=== PATIENT | female | born 1965 | race Caucasian/White ===

== ENCOUNTER 2020-02-22 16:23 | Emergency (ER) | payer OTHER ==
[2020-02-22] MEDS ORDERED: Sodium Chloride 0.9% 10 ML Syringe FLUSH PRN (17:27)
--- NOTE | 2020-02-22 17:47 | EDM.PDOC ---
ED HPI GENERAL MEDICAL PROBLEM - General Chief Complaint: Skin Complaint Stated Complaint: STAPH INFECTION Time Seen by Provider: 02/22/20 16:44 Source of Information: Reports: Patient History Limitations: Reports: No Limitations - History of Present Illness INITIAL COMMENTS - FREE TEXT/NARRATIVE: The patient presents with lesions on her arms and legs. She says she has been dealing with this for about 4 months. This started back in October. She saw her doctor and they did cultures and it showed staph aureus. She was on clindamycin, bactrim and then keflex. She also saw a hairspring truer. They tried steroid cream and oral steroids. Nothing is helping. The lesion itch and they drain at times. She has no fever or chills. She has no abdominal pain, nausea, vomiting, chest pain or shortness of breath. 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: Psychiatric History: Reports: Anxiety, Depression Endocrine/Metabolic History: Reports: Diabetes, Type I, Hypothyroidism - Past Surgical History Female Surgical History: Reports: Section Social & Family History - Family History Family Medical History: Noncontributory - Tobacco Use Smoking Status *Q: Never Smoker - Caffeine Use Caffeine Use: Reports: None ED ROS GENERAL - Review of Systems Review Of Systems: See Below Constitutional: Reports: No Symptoms HEENT: Reports: No Symptoms Respiratory: Reports: No Symptoms Cardiovascular: Reports: No Symptoms Endocrine: Reports: No Symptoms GI/Abdominal: Reports: No Symptoms : Reports: No Symptoms Musculoskeletal: Reports: No Symptoms Skin: Reports: Other (lesions on her arms and legs) ED EXAM, SKIN/RASH Exam: See Below Exam Limited By: No Limitations General Appearance: Alert, No Apparent Distress Ears: Normal External Exam Nose: Normal Inspection Head: Atraumatic, Normocephalic Neck: Normal Inspection Respiratory/Chest: No Respiratory Distress Extremities: Other (multiple erythematous lesions with no drainage to her bilateral knees and bilateral arms) Course - Vital Signs Last Recorded V/S: Last Vital Signs Temp 97.7 F 02/22/20 16:46 Pulse 102 H 02/22/20 16:46 Resp 18 02/22/20 16:46 BP 172/83 H 02/22/20 16:46 Pulse Ox 96 02/22/20 16:46 - Orders/Labs/Meds Orders: Active Orders 24 hr Category Date Time Status Peripheral IV Care [RC] . DIRECTED Care 02/22/20 17:27 Active Sodium Chloride 0.9% [Saline Flush] Med 02/22/20 17:27 Active 10 ml FLUSH ASDIRECTED PRN Vancomycin [Vancocin] 1.25 gm Med 02/22/20 17:27 Active Sodium Chloride 0.9% [Normal Saline (AdvBag)] 250 ml IV ONETIME Peripheral IV Insertion Adult [OM.PC] Routine Oth 02/22/20 17:27 Ordered Medication Orders Vancomycin HCl 1.25 gm/ Sodium (Chloride) 250 mls @ 250 mls/hr IV ONETIME ONE Stop: 02/22/20 18:26 Sodium Chloride (Saline Flush) 10 ml FLUSH ASDIRECTED PRN PRN Reason: Keep Vein Open Meds: Medications Generic Name Dose Route Start Last Admin Trade Name Freq PRN Reason Stop Dose Admin Vancomycin HCl 1.25 gm/ Sodium 250 mls @ 250 mls/hr 02/22/20 17:27 Chloride IV 02/22/20 18:26 ONETIME ONE Sodium Chloride 10 ml 02/22/20 17:27 Saline Flush FLUSH ASDIRECTED PRN Keep Vein Open - Re-Assessments/Exams Free Text/Narrative Re-Assessment/Exam: 02/22/20 17:45 My first impression is that she is reacting to something. She did not feel that was the case and she wanted some IV antibiotics. I have agreed to that plan. 02/22/20 17:46 I have ordered an IV and vancomycin. I will order outpatient vancomycin for 10 days. Departure - Departure Time of Disposition: 17:50 Disposition: Home, Self-Care 01 Condition: Good Clinical Impression: Skin infection - Discharge Information *PRESCRIPTION DRUG MONITORING PROGRAM REVIEWED*: Not Applicable *COPY OF PRESCRIPTION DRUG MONITORING REPORT IN PATIENT DIOGENES: Not Applicable Referrals: PCP,None [Primary Care Provider] - Myrna Ramirez, BRIDGETTE [Nurse Practitioner] - 1 Week Additional Instructions: I have ordered outpatient vancomycin 2 times per day. We will give the first dose tonight and come back in the morning for the second dose. Follow up with James in our clinic. Sepsis Event Note (ED) - Evaluation Sepsis Screening Result: No Definite Risk - Focused Exam Vital Signs: Vital Signs Temp Pulse Resp BP Pulse Ox 02/22/20 16:46 97.7 F 102 H 18 172/83 H 96 - My Orders Last 24 Hours: My Active Orders 02/22/20 17:27 Peripheral IV Care [RC] . DIRECTED Sodium Chloride 0.9% [Saline Flush] 10 ml FLUSH ASDIRECTED PRN Vancomycin [Vancocin] 1.25 gm Sodium Chloride 0.9% [Normal Saline (AdvBag)] 250 ml IV ONETIME Peripheral IV Insertion Adult [OM.PC] Routine - Assessment/Plan Last 24 Hours: My Active Orders 02/22/20 17:27 Peripheral IV Care [RC] . DIRECTED Sodium Chloride 0.9% [Saline Flush] 10 ml FLUSH ASDIRECTED PRN Vancomycin [Vancocin] 1.25 gm Sodium Chloride 0.9% [Normal Saline (AdvBag)] 250 ml IV ONETIME Peripheral IV Insertion Adult [OM.PC] Routine
== END 2020-02-22 19:00 | disposition home or self-care (01) ==
LOC: JD.ED 16:23
DX: L08.9 Local infection of the skin and subcutaneous tissue, unspecified (principal); E10.9 Type 1 diabetes mellitus without complications; Z98.890 Other specified postprocedural states
CPT/HCPCS: 96365; 99282; J3370; J7050

== ENCOUNTER 2020-08-27 09:13 | Emergency (ER) | payer OTHER ==
--- NOTE | 2020-08-27 09:43 | EDM.PDOC ---
ED HPI GENERAL MEDICAL PROBLEM - General Chief Complaint: Syncope Stated Complaint: DIZZY Time Seen by Provider: 08/27/20 09:42 - History of Present Illness INITIAL COMMENTS - FREE TEXT/NARRATIVE: 55-year-old female presents the emergency room after developing sudden onset dizziness. Along with this dizziness she was having difficulty thinking. This started around 8:05 o'clock this morning. The patient got frustrated because she could not properly use her seatbelt in her car because it was folded up in one of the mechanisms not allowing it to come out. This may have triggered her to become upset. Patient had some dizziness she could not attribute this to turning her head to one side or the other. She went to work and had difficulty concentrating on the simplest of tasks that she does on a routine basis. Patient has a history of type 1 diabetes she checked her blood sugar and her blood sugar was fine. The patient had an episode of dizziness several years ago and it was attributed to being dehydrated. However, this is acting much different. With the prior episode she was not having thought problems and it was not a sudden onset. - Related Data Allergies Allergy/AdvReac Type Severity Reaction Status Date / Time No Known Allergies Allergy Verified 08/27/20 09:22 Home Meds: Home Meds Diltiazem [Cardizem] 0 mg PO DAILY 08/27/20 [History] Insulin Glarg,Human.Rec.Analog [Lantus] 50 unit SQ BEDTIME 08/27/20 [History] Insulin Lispro [HumaLOG] 0 unit SQ ASDIRECTED 08/27/20 [History] Losartan [Cozaar] 0 mg PO DAILY 08/27/20 [History] Sertraline [Zoloft] 100 mg PO DAILY 08/27/20 [History] atorvaSTATin [Lipitor] 0 mg PO BEDTIME 08/27/20 [History] Past Medical History HEENT History: Reports: Impaired Vision Other HEENT History: reading eyeglasses Cardiovascular History: Reports: High Cholesterol, Hypertension, Pulmonary Hypertension Other Cardiovascular History: states has hole in heart Genitourinary History: Reports: UTI, 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 Hematologic History: Reports: Iron Deficiency Dermatologic History: Reports: Eczema - Infectious Disease History Infectious Disease History: Reports: Chicken Pox - Past Surgical History Female Surgical History: Reports: Section Musculoskeletal Surgical History: Reports: Other (See Below) Other Musculoskeletal Surgeries/Procedures:: toe surgery Social & Family History - Family History Family Medical History: No Pertinent Family History - Tobacco Use Tobacco Use Status *Q: Never Tobacco User Second Hand Smoke Exposure: No - Caffeine Use Caffeine Use: Reports: Coffee, Energy Drinks, Soda, Tea - Alcohol Use Days Per Week of Alcohol Use: 3 Number of Drinks Per Day: 2 Total Drinks Per Week: 6 - Recreational Drug Use Recreational Drug Use: No ED ROS GENERAL - Review of Systems Review Of Systems: See Below Constitutional: Reports: No Symptoms HEENT: Reports: Other (Dizziness) Respiratory: Reports: No Symptoms Cardiovascular: Reports: Blood Pressure Problem. Denies: Chest Pain, Dyspnea on Exertion, Edema GI/Abdominal: Reports: No Symptoms, Other (She has not noticed any change in her appetite she is eating and drinking normally) : Reports: No Symptoms Musculoskeletal: Reports: No Symptoms Skin: Reports: No Symptoms Neurological: Reports: Confusion, Dizziness. Denies: Tremors, Trouble Speaking, Difficulty Walking, Weakness Psychiatric: Reports: No Symptoms Hematologic/Lymphatic: Reports: No Symptoms - Physical Exam Exam: See Below Exam Limited By: No Limitations General Appearance: Alert, No Apparent Distress Eye Exam: Bilateral Eye: Normal Inspection, PERRL Ears: Normal External Exam, Normal Canal, Hearing Grossly Normal, Normal TMs Nose: Normal Inspection, Normal Mucosa, No Blood Throat/Mouth: Normal Inspection, Normal Lips, Normal Teeth, Normal Gums, Normal Oropharynx, Normal Voice, No Airway Compromise Head Exam: Atraumatic, Normocephalic Neck: Normal Inspection, Supple, Non-Tender, Full Range of Motion. No: Lymphadenopathy (L), Lymphadenopathy (R) Respiratory/Chest: No Respiratory Distress, Lungs Clear, Normal Breath Sounds Cardiovascular: Regular Rate, Rhythm, No Edema, No Murmur GI/Abdominal: Normal Bowel Sounds, Soft, Non-Tender Neuro Exam (Abbreviated): Alert, Normal Cognition, Other (Cranial nerves II through XII grossly intact all muscle groups the upper and lower extremities are equal and appropriate bilaterally. Gentle per Provocative maneuvers here in the emergency department do not seem to elicit or make her dizziness worse.) Extremities: Normal Inspection, No Pedal Edema Psychiatric: Normal Affect, Normal Mood Skin Exam: Warm, Dry, Intact #1 Interpretation EKG Date: 08/27/20 Rhythm: NSR [place]: Normal P-Wave: Present QRS: Other (Q waves noted in lead III borderline aVF) ST-T: Normal QT: Normal Comparison: NA - No Prior EKG Course - Vital Signs Last Recorded V/S: Last Vital Signs Temp 36.3 C 08/27/20 13:40 Pulse 80 08/27/20 13:40 Resp 16 08/27/20 13:40 BP 167/76 H 08/27/20 13:40 Pulse Ox 97 08/27/20 13:40 - Orders/Labs/Meds Labs: Laboratory Tests 08/27/20 08/27/20 08/27/20 Range/Units 09:20 10:55 10:55 WBC (3.98-10.04) K/mm3 RBC (3.98-5.22) M/mm3 Hgb (11.2-15.7) gm/dl Hct (34.1-44.9) % MCV (79.4-94.8) fl MCH (25.6-32.2) pg MCHC (32.2-35.5) g/dl RDW Std Deviation (36.4-46.3) fL Plt Count (182-369) K/mm3 MPV (9.4-12.3) fl Neut % (Auto) (34.0-71.1) % Lymph % (Auto) (19.3-51.7) % [place] % (Auto) (4.7-12.5) % Eos % (Auto) (0.7-5.8) Baso % (Auto) (0.1-1.2) % Neut # (Auto) (1.56-6.13) K/mm3 Lymph # (Auto) (1.18-3.74) K/mm3 Kent # (Auto) (0.24-0.36) K/mm3 Eos # (Auto) (0.04-0.36) K/mm3 Baso # (Auto) (0.01-0.08) K/mm3 PT 9.8 (9.7-12.0) SECONDS INR < 0.93 APTT 26.8 (21.7-31.4) SECONDS Sodium 144 (136-145) mEq/L Potassium 4.2 (3.5-5.1) mEq/L Chloride 105 (98-107) mEq/L Carbon Dioxide 27 (21-32) mEq/L Anion Gap 16.2 H (5-15) BUN 11 (7-18) mg/dL Creatinine 0.6 (0.55-1.02) mg/dL Est Cr Clr Drug Dosing 108.13 mL/min Estimated GFR (MDRD) > 60 (>60) mL/min BUN/Creatinine Ratio 18.3 H (14-18) Glucose 123 H (74-106) mg/dL POC Glucose 119 H (70-105) mg/dL Calcium 9.5 (8.5-10.1) mg/dL Magnesium 2.0 (1.8-2.4) mg/dl Total Bilirubin 0.4 (0.2-1.0) mg/dL AST 28 (15-37) U/L ALT 33 (14-59) U/L Alkaline Phosphatase 127 H (46-116) U/L Troponin I < 0.017 (0.00-0.056) ng/mL Total Protein 7.9 (6.4-8.2) g/dl Albumin 3.5 (3.4-5.0) g/dl Globulin 4.4 gm/dL Albumin/Globulin Ratio 0.8 L (1-2) 08/27/20 Range/Units 10:55 WBC 6.75 (3.98-10.04) K/mm3 RBC 4.84 (3.98-5.22) M/mm3 Hgb 13.9 (11.2-15.7) gm/dl Hct 42.8 (34.1-44.9) % MCV 88.4 (79.4-94.8) fl MCH 28.7 (25.6-32.2) pg MCHC 32.5 (32.2-35.5) g/dl RDW Std Deviation 46.9 H (36.4-46.3) fL Plt Count 373 H (182-369) K/mm3 MPV 9.5 (9.4-12.3) fl Neut % (Auto) 66.4 (34.0-71.1) % Lymph % (Auto) 21.9 (19.3-51.7) % Kent % (Auto) 7.1 (4.7-12.5) % Eos % (Auto) 4.0 (0.7-5.8) Baso % (Auto) 0.3 (0.1-1.2) % Neut # (Auto) 4.48 (1.56-6.13) K/mm3 Lymph # (Auto) 1.48 (1.18-3.74) K/mm3 Kent # (Auto) 0.48 H (0.24-0.36) K/mm3 Eos # (Auto) 0.27 (0.04-0.36) K/mm3 Baso # (Auto) 0.02 (0.01-0.08) K/mm3 PT (9.7-12.0) SECONDS INR APTT (21.7-31.4) SECONDS Sodium (136-145) mEq/L Potassium (3.5-5.1) mEq/L Chloride (98-107) mEq/L Carbon Dioxide (21-32) mEq/L Anion Gap (5-15) BUN (7-18) mg/dL Creatinine (0.55-1.02) mg/dL Est Cr Clr Drug Dosing mL/min Estimated GFR (MDRD) (>60) mL/min BUN/Creatinine Ratio (14-18) Glucose (74-106) mg/dL POC Glucose (70-105) mg/dL Calcium (8.5-10.1) mg/dL Magnesium (1.8-2.4) mg/dl Total Bilirubin (0.2-1.0) mg/dL AST (15-37) U/L ALT (14-59) U/L Alkaline Phosphatase (46-116) U/L Troponin I (0.00-0.056) ng/mL Total Protein (6.4-8.2) g/dl Albumin (3.4-5.0) g/dl Globulin gm/dL Albumin/Globulin Ratio (1-2) - Re-Assessments/Exams Free Text/Narrative Re-Assessment/Exam: 08/27/20 12:00 It is doing much better at this time. Head CT was unremarkable for acute change there with some probably calcification that was symmetrical noted in the basal ganglia. 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 With her presentation I was concerned about the possibility of a Stealth stroke. MRI is available we will obtain a brain MRI without contrast. 08/27/20 13:28 MRI is nondiagnostic did not show any evidence of acute change. Case was discussed with Dr. Guzmán, neurologist at [facility] in [place] his recommendation is to check a outpatient carotid Doppler start the patient on a baby aspirin and have her follow-up in the clinic. Departure - Departure Time of Disposition: 13:29 Disposition: Home, Self-Care 01 Clinical Impression: Dizzinesses, Transient confusion - Discharge Information Referrals: Koby Cunningham PA-C [Primary Care Provider] - Forms: ED Department Discharge Additional Instructions: Return to the emergency room with any questions problems or worsening symptoms. Start baby aspirin 81 mg enteric-coated 1 daily. You should be contacted by radiology department to arrange what they call a carotid Doppler. This is an ultrasound study of your carotid arteries to make sure there is no developing blockage in those arteries. Follow-up in the clinic a a day or 2 after the ultrasound study is done. Sepsis Event Note (ED) - Evaluation Sepsis Screening Result: No Definite Risk
--- NOTE | 2020-08-27 10:55 | CT ---
Head CT Technique: Multiple axial sections of the brain were obtained. Intravenous contrast was not utilized. Comparison: No prior intracranial imaging is available. Findings: Ventricles along with basal cisterns and sulci over the convexities appear within normal limits for the patient's age. Small linear area of increased density within the left cerebellar hemisphere is most likely representing a small vascular abnormality. Prominent basal ganglia calcification is noted which is symmetric between right and left sides. Minimal linear area of increased density is seen slightly superior to the right-sided basal ganglia calcification within the centrum semi-ovale. No other abnormal parenchymal densities are seen. No evidence of intracranial hemorrhage. No midline shift or mass-effect is seen. Bone window settings were reviewed. Visualized mastoid and paranasal sinuses are clear. No acute calvarial abnormality is appreciated. Impression: 1. Prominent basal ganglia calcification which is symmetric. Please rule out any causes of hypercalcemia. If no etiology is seen, this likely represents prominent normal variant. 2. 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 3. Nothing acute is otherwise seen on noncontrast head CT exam. Diagnostic code #2
--- NOTE | 2020-08-27 11:03 | CR ---
Chest: Portable view of the chest was obtained. Comparison: No previous study. Heart size and mediastinum are normal. Lungs are clear with no acute parenchymal change. Bony structures show some slight scoliosis within the spine. Impression: 1. Nothing acute is seen on portable chest x-ray. Diagnostic code #2
--- NOTE | 2020-08-27 12:54 | MR ---
MRI brain Technique: T1 sagittal; T2, T2 FLAIR, T1 and diffusion axial; T1 and T2 gradient echo's coronal images were also obtained. T2 gradient echo axial images were also obtained. Comparison: Prior head CT study of 08/27/20. Findings: Ventricles along with basal cisterns and sulci over the convexities are within normal limits for the patient's age. No abnormal signal is seen within the brain parenchyma. No acute diffusion abnormalities are appreciated. Basal ganglia calcification is seen on the gradient echo sequences which are stable from the prior CT. No additional abnormality is seen on this exam. Visualized mastoid sinuses and paranasal sinuses are clear. Impression: 1. Basal ganglia calcification is again noted. 2. No additional abnormality is appreciated on MRI study of the brain. 3. No acute diffusion abnormalities are seen. Diagnostic code #2
== END 2020-08-27 13:45 | disposition home or self-care (01) ==
LOC: JD.ED 09:13
DX: R42 Dizziness and giddiness (principal); R41.0 Disorientation, unspecified; E78.00 Pure hypercholesterolemia, unspecified; I10 Essential (primary) hypertension; E10.9 Type 1 diabetes mellitus without complications; Z79.899 Other long term (current) drug therapy
CPT/HCPCS: 36415; 70450; 70450-26; 70551; 70551-26; 71045; 71045-26; 80053; 82962; 83735; 84484; 85025; 85610; 85730; 93005; 93010; 99284; 99285-25

== ENCOUNTER 2022-01-01 08:11 | Emergency (ER) | payer OTHER ==
[2022-01-01] MEDS ORDERED: Sodium Chloride 0.9% 1,000 ML IV SCH (09:00)
[2022-01-01] MEDS ORDERED: Iopamidol 612 MG/ML 50 ML SDV IVPUSH ONE (09:41)
[2022-01-01] MEDS ORDERED: Iopamidol 612 MG/ML 100 ML Bottle IVPUSH ONE (09:41)
[2022-01-01] MEDS ORDERED: Diatrizoate Meglumine/Diatrizoate Sodium 37% 120 ML Bottle PO ONE (09:41)
[2022-01-01] MEDS: Sodium Chloride 0.9% 10 ML Syringe FLUSH PRN ×2 (09:42→09:59)
== END 2022-01-01 11:32 | disposition home or self-care (01) ==
LOC: JD.ED 08:11
DX: K52.9 Noninfective gastroenteritis and colitis, unspecified (principal); E11.9 Type 2 diabetes mellitus without complications; I10 Essential (primary) hypertension; E03.9 Hypothyroidism, unspecified; E78.00 Pure hypercholesterolemia, unspecified; F41.9 Anxiety disorder, unspecified; F32.A Depression, unspecified
CPT/HCPCS: 36415; 74177; 80053; 83735; 85025; 86140; 96360; 96361; 99284; J3490; J7030; Q9963; Q9967

== ENCOUNTER 2024-04-10 08:12 | Inpatient (IN) | payer OTHER ==
[2024-04-10 09:39] LABS: APPEARANCE,URINE CLEAR (Clear); BILIRUBIN,URINE NEGATIVE (Negative); COLOR,URINE YELLOW (Yellow); GLUCOSE,URINE NEGATIVE (Negative); KETONES,URINE NEGATIVE (Negative); LEUKOCYTE ESTERASE,URINE NEGATIVE (Negative); NITRITE,URINE NEGATIVE (Negative); OCCULT BLOOD,URINE TRACE-INTACT (Negative); PH,URINE 6.5 (5.0-8.0); PROTEIN,URINE 1+ (Negative); UROBILINOGEN,URINE 0.2 (0.2-1.0)
[2024-04-10] MEDS: Ondansetron 4 MG Tab.DIS PO ONE (10:22)
[2024-04-10 10:28] LABS: CORONAVIRUS COVID-19 NAA NEGATIVE (NEGATIVE); INFLUENZA A NAA NEGATIVE (NEGATIVE); RESPIRATORY SYNCYTIAL VIR NAA NEGATIVE (NEGATIVE)
[2024-04-10 10:34] LABS: SQUAMOUS EPITHELIAL CELLS,UR 0-5 /hpf (0-5); WBC,URINE 0-5 /hpf (0-5)
[2024-04-10 10:35] LABS: BACTERIA,URINE NOT SEEN /hpf (FEW); MUCUS,URINE NOT SEEN /hpf (FEW)
[2024-04-10 11:19] LABS: BASOPHILS PERCENT AUTO 0.3 % (0.0-1.0); EOSINOPHILS ABSOLUTE AUTO 0.3 K/mm3 (0.0-0.4); EOSINOPHILS PERCENT AUTO 2.9 % (0.0-6.0); HEMATOCRIT 34.4 % (37.0-47.0); HEMOGLOBIN 11.3 gm/dl (12.0-16.0); IMMATURE GRAN ABSOLUTE AUTO 0.05 K/mm3 (0.00-0.05); IMMATURE GRAN PERCENT AUTO 0.4 % (0.0-0.4); LYMPHOCYTES ABSOLUTE AUTO 1.3 K/mm3 (1.0-4.8); LYMPHOCYTES PERCENT AUTO 11.6 % (24.0-44.0); MEAN CORPUSCULAR HEMOGLOBIN 29.1 pg (28.0-32.0); MEAN CORPUSCULAR HGB CONC 32.8 g/dl (32.0-36.0); MEAN CORPUSCULAR VOLUME 88.7 fl (83.0-99.0); MEAN PLATELET VOLUME 9.7 fl (9.4-12.3); MONOCYTES ABSOLUTE AUTO 0.9 K/mm3 (0.0-0.8); NEUTROPHILS ABSOLUTE AUTO 8.9 K/mm3 (1.8-7.7); NEUTROPHILS PERCENT AUTO 76.8 % (41.0-71.0); PLATELET COUNT,PLT 381 K/mm3 (150-400); RED BLOOD CELL COUNT 3.88 M/mm3 (4.10-5.30); WHITE BLOOD CELL COUNT,WBC 11.52 K/mm3 (3.9-11.3)
[2024-04-10 11:51] LABS: A/G RATIO 0.6 (1-2); ALBUMIN 2.8 g/dl (3.4-5.0); ANION GAP 14.5 (5-15); BILIRUBIN TOTAL 0.4 mg/dL (0.2-1.0); CALCIUM 9.2 mg/dL (8.5-10.1); CREATININE 0.7 mg/dL (0.55-1.02); EST CRCL DRUG DOSING (CG) 89.45 mL/min; POTASSIUM,K 3.5 mEq/L (3.5-5.1); PROTEIN TOTAL,TP 7.5 g/dl (6.4-8.2)
[2024-04-10] MEDS: Doxycycline Monohydrate 100 MG Cap PO ONE (12:51)
[2024-04-10] MEDS: cefTRIAXone 1 GM in Sodium Chloride 0.9% 100 ML IV ONE (12:57)
[2024-04-10] MEDS: Furosemide 40 MG/4 ML VIAL IVPUSH ONE ×2 (15:05→20:08)
[2024-04-10] MEDS ORDERED: Melatonin 3 MG Tab PO PRN (15:10)
[2024-04-10] MEDS ORDERED: Sennosides/Docusate Sodium 50-8.6 MG Tab PO PRN (15:10)
[2024-04-10] MEDS ORDERED: oxyCODONE 5 MG Tab PO PRN (15:10)
[2024-04-10] MEDS ORDERED: Acetaminophen 325 MG Tab PO PRN (15:10)
[2024-04-10] MEDS ORDERED: 50% Dextrose in Water 50 ML SDV IV PRN (15:16)
[2024-04-10] MEDS ORDERED: Labetalol 100 MG/20 ML MDV IVPUSH PRN (15:20)
[2024-04-10] MEDS ORDERED: hydrALAZINE 20 MG/ML SDV IVPUSH PRN (15:20)
[2024-04-10] MEDS: Potassium Chloride 20 MEQ Tab.ER PO ONE (16:45)
[2024-04-10] MEDS ORDERED: FLU (Flulaval Triv) 24-25(6MOS UP)/PF 45 MCG/0.5 ML Syringe IM ONE (18:45)
[2024-04-10] MEDS: atorvaSTATin 20 MG Tab PO SCH (21:25)
[2024-04-11 05:50] LABS: BASOPHILS PERCENT AUTO 0.3 % (0.0-1.0); EOSINOPHILS ABSOLUTE AUTO 0.3 K/mm3 (0.0-0.4); HEMATOCRIT 29.5 % (37.0-47.0); IMMATURE GRAN ABSOLUTE AUTO 0.11 K/mm3 (0.00-0.05); IMMATURE GRAN PERCENT AUTO 0.8 % (0.0-0.4); LYMPHOCYTES ABSOLUTE AUTO 1.8 K/mm3 (1.0-4.8); MEAN CORPUSCULAR HEMOGLOBIN 29.1 pg (28.0-32.0); MEAN CORPUSCULAR HGB CONC 32.9 g/dl (32.0-36.0); MEAN CORPUSCULAR VOLUME 88.6 fl (83.0-99.0); MEAN PLATELET VOLUME 9.8 fl (9.4-12.3); MONOCYTES ABSOLUTE AUTO 1.1 K/mm3 (0.0-0.8); MONOCYTES PERCENT AUTO 7.9 % (0.0-8.0); NEUTROPHILS ABSOLUTE AUTO 10.5 K/mm3 (1.8-7.7); PLATELET COUNT,PLT 355 K/mm3 (150-400); RED BLOOD CELL COUNT 3.33 M/mm3 (4.10-5.30); WHITE BLOOD CELL COUNT,WBC 13.82 K/mm3 (3.9-11.3)
[2024-04-11 05:51] LABS: HEMOGLOBIN 9.7 gm/dl (12.0-16.0)
[2024-04-11 06:13] LABS: HEPATITIS C AB NON-REACTIVE (Non-React)
[2024-04-11 06:38] LABS: A/G RATIO 0.6 (1-2); ALBUMIN 2.3 g/dl (3.4-5.0); ANION GAP 12.6 (5-15); BILIRUBIN TOTAL 0.4 mg/dL (0.2-1.0); C-REACTIVE PROTEIN 17.17 mg/dL (<0.30); CALCIUM 8.4 mg/dL (8.5-10.1); CREATININE 0.7 mg/dL (0.55-1.02); EST CRCL DRUG DOSING (CG) 89.45 mL/min; MAGNESIUM 1.5 mg/dL (1.8-2.4); PHOSPHORUS 3.1 mg/dL (2.6-4.7); POTASSIUM,K 3.6 mEq/L (3.5-5.1); PROTEIN TOTAL,TP 6.5 g/dl (6.4-8.2); TSH 1.163 uIU/mL (0.358-3.74)
[2024-04-11] MEDS: Enoxaparin 40 MG/0.4 ML Syringe SUBCUT SCH (08:44)
[2024-04-11] MEDS: cefTRIAXone 1 GM in Sodium Chloride 0.9% 100 ML IV SCH (08:44)
[2024-04-11] MEDS: Sertraline 50 MG Tab PO SCH (08:45)
[2024-04-11] MEDS: Azithromycin 250 MG Tab PO SCH (08:45)
[2024-04-11] MEDS: Rosuvastatin 10 MG Tab PO SCH (10:26)
[2024-04-11] MEDS: Losartan 100 MG Tab PO SCH (10:26)
[2024-04-11] MEDS: Liothyronine 5 MCG Tab PO SCH (10:28)
[2024-04-11] MEDS: Ondansetron 4 MG/2 ML SDV IV PRN (10:54)
[2024-04-11] MEDS: Magnesium Sulfate/Water Premix 2 GM in Premix Bag 1 BAG IV ONE (16:49)
[2024-04-12] MEDS: Levothyroxine 88 MCG Tab PO SCH (06:30)
[2024-04-12] MEDS: Hydrochlorothiazide 25 MG Tab PO SCH (08:11)
[2024-04-12 09:34] LABS: BASOPHILS PERCENT AUTO 0.3 % (0.0-1.0); EOSINOPHILS ABSOLUTE AUTO 0.3 K/mm3 (0.0-0.4); EOSINOPHILS PERCENT AUTO 2.2 % (0.0-6.0); HEMATOCRIT 26.8 % (37.0-47.0); HEMOGLOBIN 8.8 gm/dl (12.0-16.0); IMMATURE GRAN ABSOLUTE AUTO 0.13 K/mm3 (0.00-0.05); LYMPHOCYTES ABSOLUTE AUTO 1.9 K/mm3 (1.0-4.8); LYMPHOCYTES PERCENT AUTO 14.9 % (24.0-44.0); MEAN CORPUSCULAR HEMOGLOBIN 28.9 pg (28.0-32.0); MEAN CORPUSCULAR HGB CONC 32.8 g/dl (32.0-36.0); MEAN CORPUSCULAR VOLUME 87.9 fl (83.0-99.0); MEAN PLATELET VOLUME 9.7 fl (9.4-12.3); MONOCYTES ABSOLUTE AUTO 0.9 K/mm3 (0.0-0.8); MONOCYTES PERCENT AUTO 6.9 % (0.0-8.0); NEUTROPHILS ABSOLUTE AUTO 9.5 K/mm3 (1.8-7.7); NEUTROPHILS PERCENT AUTO 74.7 % (41.0-71.0); PLATELET COUNT,PLT 359 K/mm3 (150-400); RED BLOOD CELL COUNT 3.05 M/mm3 (4.10-5.30); WHITE BLOOD CELL COUNT,WBC 12.68 K/mm3 (3.9-11.3)
[2024-04-12 10:01] LABS: A/G RATIO 0.5 (1-2); ALBUMIN 2.2 g/dl (3.4-5.0); ANION GAP 9.9 (5-15); BILIRUBIN TOTAL 0.3 mg/dL (0.2-1.0); BUN/CREATININE RATIO 14.3 (14-18); C-REACTIVE PROTEIN 18.65 mg/dL (<0.30); CALCIUM 8.8 mg/dL (8.5-10.1); CREATININE 0.7 mg/dL (0.55-1.02); EST CRCL DRUG DOSING (CG) 89.45 mL/min; POTASSIUM,K 3.9 mEq/L (3.5-5.1); PROTEIN TOTAL,TP 6.6 g/dl (6.4-8.2)
[2024-04-12] MEDS: FLU (Flulaval Triv) 24-25(6MOS UP)/PF 45 MCG/0.5 ML Syringe IM ONE (12:46)
== END 2024-04-12 12:55 | disposition home or self-care (01) | DRG 871 ==
LOC: JD.ED 08:12 → JD.MS 15:10
PROVIDERS: ADMIT Student in an Organized Health Care Education/Training Program; ATTEND Family Medicine
DX: A41.9 Sepsis, unspecified organism (principal); I21.A1 Myocardial infarction type 2; J18.9 Pneumonia, unspecified organism; J96.01 Acute respiratory failure with hypoxia; D84.9 Immunodeficiency, unspecified; R65.20 Severe sepsis without septic shock; I11.0 Hypertensive heart disease with heart failure; I50.9 Heart failure, unspecified; H54.7 Unspecified visual loss; E78.00 Pure hypercholesterolemia, unspecified; I27.20 Pulmonary hypertension, unspecified; G47.30 Sleep apnea, unspecified; F41.9 Anxiety disorder, unspecified; F32.A Depression, unspecified; E03.9 Hypothyroidism, unspecified; E83.42 Hypomagnesemia; E10.65 Type 1 diabetes mellitus with hyperglycemia; K76.0 Fatty (change of) liver, not elsewhere classified; Z86.16 Personal history of COVID-19; Z79.899 Other long term (current) drug therapy; Z95.1 Presence of aortocoronary bypass graft; Z98.891 History of uterine scar from previous surgery; Z79.4 Long term (current) use of insulin
CPT/HCPCS: 0241U; 36415; 71045; 71045-26; 71046; 71046-26; 76705; 76705-26; 80053; 81001; 82947; 83605; 83735; 83880; 84100; 84443; 84484; 85025; 86140; 86803; 87040; 93005; 93010; 93306; 94760; 94761; 96365; 96366; 96375; 99223; 99233; 99239; 99284; 99285-25; A9270-GY; J0696; J1650; J1940; J2405; J3475; J3490